=== PATIENT | female | born 1980 | race Caucasian/White ===

== ENCOUNTER → 2025-03-03 11:06 | Outpatient (REF) | payer OTHER, SELFPAY | LOC: WDC 11:06 | PROVIDERS: ATTENDING PHYSICIAN Obstetrics & Gynecology; FAMILY PHYSICIAN Internal Medicine | DX: Z12.31 Encounter for screening mammogram for malignant neoplasm of breast (principal) | CPT/HCPCS: 77063; 77067 ==

== ENCOUNTER 2025-05-23 15:04 | Emergency (ER) | payer SELFPAY ==
[2025-05-23 15:20] VITALS: BP 123/76
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
[2025-05-23] MEDS: TORADOL 15 MG IV (16:38)
== END 2025-05-23 16:59 | disposition home or self-care (01) ==
LOC: EMR 15:04
PROVIDERS: EMERGENCY PHYSICIAN Emergency Medicine
DX: S60.211A Contusion of right wrist, initial encounter (principal); S80.11XA Contusion of right lower leg, initial encounter; V89.2XXA Person injured in unspecified motor-vehicle accident, traffic, initial encounter; Y92.410 Unspecified street and highway as the place of occurrence of the external cause; Z86.72 Personal history of thrombophlebitis
CPT/HCPCS: 99283; 29125; 96374; 73110; 73590